=== PATIENT | male | born 1950 | race American Indian/Alaskan Native ===

== ENCOUNTER 2020-02-08 18:17 | Inpatient (IN) | payer OTHER ==
[2020-02-08] MEDS ORDERED: SODIUM CHLORIDE 0.9% 1000 ML 1,000 ML IV ONE (18:25)
[2020-02-08] MEDS ORDERED: PRAVASTATIN 40 MG TAB PO ONE (18:29)
[2020-02-08] MEDS ORDERED: MORPHINE 4 MG/1 ML INJ IV ONE (18:29)
[2020-02-08] MEDS ORDERED: HEPARIN 10,000 UNITS/10 ML VIAL IV ONE (18:30)
[2020-02-08] MEDS ORDERED: METOPROLOL TARTRATE 50 MG TAB PO ONE (18:31)
--- NOTE | 2020-02-08 18:31 | Emergency Department Report ---
ED Chest Pain HPI - General Chief Complaint: Chest Pain Stated Complaint: CHEST PAIN PUI?: No Time Seen by Provider: 02/08/20 18:28 Source: patient, EMS ( EMS documentation not available at time of chart dictation ), RN notes reviewed Mode of arrival: Stretcher Limitations: No Limitations - History of Present Illness Initial Comments: The patient was evaluated in the emergency department for symptoms described in the history of present illness. He/she was evaluated in the context of the global COVID-19 pandemic, which necessitated consideration that the patient might be at risk for infection with the virus that causes COVID-19. Institutional protocols and algorithms that pertain to the evaluation of patients at risk for COVID-19 are in a state of rapid change based on information released by regulatory bodies including the CDC and federal and state organizations. These policies and algorithms were followed during the patient's care in the emergency department. Please note that these policies, procedures and recommendations changed on a rapid basis. The patient is a 69-year-old gentleman. He is not known to myself previously. He typically follows with the [facility]. He has a history of obesity, tobacco use, high cholesterol, question hypertension and diabetes. He is brought to the hospital by emergency medical services. He has a complaint of chest pain. The chest pain is central and left-sided. It is intermittent over the past month. He indicates he does not radiate to the back, arms or neck. He denies vomiting. He is not sure if he is having sweating or diaphoresis. He has intermittent shortness of breath. He was given aspirin and nitroglycerin in the field, which markedly improved his symptoms. He rates his pain as a 4 out of 10 at this time. Previously, it was "a lot higher than 10." A prehospital EKG transmitted by EMS showed diffuse ST depressions, and nonspecific ST abnormality, although not consistent with STEMI. Repeat ER EKG showed resolution of ST depressions, however, biphasic T waves V2 and V3, suspicious for Wellens syndrome. The patient denies cocaine use, and he denies erectile dysfunction medication utilization. His EKGs were transmitted to our interventional STEMI midwife and birth center owner, Dr. Negin Ireland, who advised that based off of the patient's improvement in symptoms, and repeat EKG, he did not meet criteria for emergent activation of the Set Rider. Medical management was recommended, including beta-harry, statins, and heparin drip. Admission to the CCU was recommended. This plan of care is discussed with the patient, who verbalized understanding, and who is amenable to this plan of care. The patient denies DVT and pulmonary embolism risk factors. MD Complaint: chest pain -: Gradual, week(s) Pain Location: left chest Severity: mild Severity scale (0 -10): 0 Quality: aching Consistency: intermittent Improves With: nitroglycerin, medication-other Worsens With: nothing Treatments Prior to Arrival: aspirin, nitroglycerin Aspirin use within the Past 7 Days: (1) Yes - Related Data Previous Rx's Medication Instructions Recorded Last Taken Type Aspirin EC [Ecotrin] 81 mg PO QDAY #100 tablet. 02/09/20 Unknown Rx Glimepiride [Amaryl] 1 mg PO QAM #90 tablet 02/09/20 Unknown Rx Losartan [Cozaar] 50 mg PO QDAY #30 tablet 02/09/20 Unknown Rx metFORMIN XR [Glucophage XR] 500 mg PO QDAY #30 tab 02/09/20 Unknown Rx Allergies Allergy/AdvReac Type Severity Reaction Status Date / Time No Known Allergies Allergy Verified 02/08/20 18:37 Heart Score - HEART Score History: Moderately suspicious EKG: Significant ST-depression Age: > 65 Risk factors: > 3 risk factors or hx of atherosclerotic disease Troponin: < normal limit HEART Score: 7 - Critical Actions Critical Actions: >7 pts:50-65% risk of adverse cardiac event. Early invasive measures ED Review of Systems ROS: Stated complaint: CHEST PAIN Other details as noted in HPI Constitutional: denies: fever Eyes: denies: vision change ENT: denies: hearing loss Respiratory: denies: cough Cardiovascular: chest pain Gastrointestinal: denies: abdominal pain, nausea, vomiting, hematemesis, melena, hematochezia Genitourinary: denies: dysuria Musculoskeletal: denies: myalgia Neurological: denies: weakness Hematological/Lymphatic: denies: easy bleeding ED Past Medical Hx - Past Medical History Previous Medical History?: Yes Hx Diabetes: Yes - Surgical History Past Surgical History?: No - Social History Smoking Status: Current Every Day Smoker Substance Use Type: None - Medications Home Medications: Home Medications Medication Instructions Recorded Confirmed Last Taken Type Aspirin EC [Ecotrin] 81 mg PO QDAY #100 tablet. 02/09/20 Unknown Rx Glimepiride [Amaryl] 1 mg PO QAM #90 tablet 02/09/20 Unknown Rx Losartan [Cozaar] 50 mg PO QDAY #30 tablet 02/09/20 Unknown Rx metFORMIN XR [Glucophage XR] 500 mg PO QDAY #30 tab 02/09/20 Unknown Rx ED Physical Exam - General Limitations: No Limitations General appearance: alert, in no apparent distress - Head Head exam: Present: atraumatic, normocephalic - Eye Eye exam: Present: normal appearance, EOMI. Absent: nystagmus - ENT ENT exam: Present: normal exam, normal orophraynx, mucous membranes moist, normal external ear exam, other (Patient is edentulous) - Neck Neck exam: Present: normal inspection, full ROM. Absent: tenderness, meningismus - Respiratory Respiratory exam: Present: normal lung sounds bilaterally. Absent: respiratory distress, wheezes, rales, rhonchi, stridor - Cardiovascular Cardiovascular Exam: Present: regular rate, normal rhythm, normal heart sounds. Absent: bradycardia, tachycardia, irregular rhythm, systolic murmur, diastolic murmur, rubs, gallop - GI/Abdominal GI/Abdominal exam: Present: soft. Absent: distended, tenderness, guarding, rebound, rigid, pulsatile mass - Rectal Rectal exam: Present: deferred - Extremities Exam Extremities exam: Present: normal inspection, full ROM, other (2+ pulses noted in the bilateral upper and lower extremities. There is no palpable cord. negative Homans sign. Muscular compartments are soft. The pelvis is stable.). Absent: pedal edema, calf tenderness - Back Exam Back exam: Present: normal inspection, full ROM. Absent: tenderness, CVA tenderness (R), CVA tenderness (L), paraspinal tenderness, vertebral tenderness - Neurological Exam Neurological exam: Present: alert, other (No facial droop. Tongue midline. Extraocular movements intact bilaterally. Facial sensation intact to light touch in V1, V2, V3 distribution bilaterally. 5 and a 5 strength in 4 extremities. Sensation intact to light touch in 4 extremities.). Absent: motor sensory deficit - Psychiatric Psychiatric exam: Present: normal affect, normal mood - Skin Skin exam: Present: warm, dry, intact, normal color. Absent: rash ED Course Vital Signs 02/08/20 02/08/20 02/08/20 18:22 18:24 18:31 Temperature 97.9 F Pulse Rate 76 78 Respiratory 16 13 Rate Blood Pressure 181/79 Blood Pressure 181/70 [Left] O2 Sat by Pulse 100 100 100 Oximetry 02/08/20 02/08/20 02/08/20 18:45 18:50 19:00 Temperature Pulse Rate 72 71 72 Respiratory 11 L 18 Rate Blood Pressure 181/79 158/62 162/65 Blood Pressure [Left] O2 Sat by Pulse 100 99 Oximetry 02/08/20 02/08/20 02/08/20 19:15 19:35 19:42 Temperature Pulse Rate 71 77 100 H Respiratory 20 Rate Blood Pressure 159/70 136/65 178/124 Blood Pressure [Left] O2 Sat by Pulse 98 Oximetry 02/08/20 02/08/20 02/08/20 19:45 20:00 20:15 Temperature Pulse Rate 82 68 62 Respiratory 14 19 15 Rate Blood Pressure 199/87 150/68 154/63 Blood Pressure [Left] O2 Sat by Pulse 97 97 96 Oximetry 02/08/20 02/08/20 02/08/20 20:30 20:45 21:00 Temperature Pulse Rate 63 79 62 Respiratory 17 12 17 Rate Blood Pressure 141/59 152/70 155/64 Blood Pressure [Left] O2 Sat by Pulse 99 99 99 Oximetry 02/08/20 02/08/20 02/08/20 21:15 21:31 22:01 Temperature Pulse Rate 71 81 76 Respiratory 18 18 16 Rate Blood Pressure 145/64 160/63 143/76 Blood Pressure [Left] O2 Sat by Pulse 96 97 Oximetry 02/08/20 02/08/20 02/08/20 22:15 22:31 22:46 Temperature Pulse Rate 73 71 85 Respiratory 17 13 19 Rate Blood Pressure 157/64 136/64 159/60 Blood Pressure [Left] O2 Sat by Pulse 100 100 Oximetry 02/08/20 02/08/20 02/08/20 23:00 23:15 23:30 Temperature Pulse Rate 73 78 65 Respiratory 15 22 17 Rate Blood Pressure 138/73 151/80 160/71 Blood Pressure [Left] O2 Sat by Pulse 100 99 99 Oximetry 02/08/20 02/09/20 02/09/20 23:45 00:00 00:13 Temperature Pulse Rate 68 81 66 Respiratory 15 18 16 Rate Blood Pressure 148/66 129/74 118/68 Blood Pressure [Left] O2 Sat by Pulse 98 96 98 Oximetry 02/09/20 02/09/20 02/09/20 00:15 00:31 00:41 Temperature Pulse Rate 66 82 95 H Respiratory 16 15 Rate Blood Pressure 122/60 139/62 184/88 Blood Pressure [Left] O2 Sat by Pulse 96 98 Oximetry 02/09/20 02/09/20 02/09/20 00:45 01:00 01:15 Temperature Pulse Rate 73 62 62 Respiratory 17 14 15 Rate Blood Pressure 189/87 124/62 120/59 Blood Pressure [Left] O2 Sat by Pulse 98 96 98 Oximetry 02/09/20 02/09/20 02/09/20 01:31 01:45 02:01 Temperature Pulse Rate 67 61 59 L Respiratory 20 15 17 Rate Blood Pressure 111/66 133/56 129/48 Blood Pressure [Left] O2 Sat by Pulse 97 100 97 Oximetry 02/09/20 02/09/20 02/09/20 02:15 02:30 02:45 Temperature Pulse Rate 57 L 60 59 L Respiratory 15 16 15 Rate Blood Pressure 118/45 107/50 130/55 Blood Pressure [Left] O2 Sat by Pulse 96 95 96 Oximetry 02/09/20 02/09/20 02/09/20 03:01 03:03 03:15 Temperature Pulse Rate 88 77 84 Respiratory 18 13 Rate Blood Pressure 166/79 186/87 116/58 Blood Pressure [Left] O2 Sat by Pulse 100 97 Oximetry - Reevaluation(s) Reevaluation #1: 02/08/20 18:38 Dr Kristy Merino to admit Reevaluation #2: 02/08/20 18:54 Patient is reassessed. He continues to remain pain-free. X-ray of the chest to my interpretation shows no acute pathology Reevaluation #3: 02/08/20 19:23 Dr Kristy Merino to admit NEIL score - Neil Score Age > 65: (1) Yes Aspirin use within the Past 7 Days: (1) Yes 3 or more CAD Risk Factors: (1) Yes 2 or more Angina events in past 24 hrs: (1) Yes Known CAD with more than 50% Stenosis: (0) No Elevated Cardiac Markers: (0) No ST Deviation Greater than 0.5mm: (1) Yes NEIL Score: 5 ED Medical Decision Making - Lab Data Result diagrams: 02/09/20 06:50 02/09/20 06:50 Vital Signs 02/08/20 18:24 Temperature 97.9 F Pulse Rate 76 Respiratory 16 Rate Blood Pressure 181/70 [Left] O2 Sat by Pulse 100 Oximetry - EKG Data -: EKG Interpreted by Me EKG shows normal: sinus rhythm Rate: normal - EKG Data When compared to previous EKG there are: previous EKG unavailable 02/08/20 18:36 EKG in the emergency room shows a sinus rhythm, 71 bpm, normal axis, QTC within normal limits, left ventricular hypertrophy, biphasic T waves, suspicious for Wellens syndrome. The EKG is abnormal, it is different from the prehospital EKG. The EKG is not a STEMI. The EKG is transmitted to our case loader operator, Dr. Negin Ireland, who also advises and agrees that this EKG is not consistent with a STEMI - Radiology Data Radiology results: pending, image reviewed interpreted by me: 1 view x-ray of the chest shows clear lungs, no infiltrate, no pneumothorax, unremarkable mediastinum, unremarkable osseous anatomy. - Medical Decision Making Differential diagnosis, include but not limited to: Stable angina, unstable angina, Wellens syndrome Assessment and plan: 69-year-old gentleman who is essentially pain-free at this time, with markedly abnormal EKG, moderate to high risk for major adverse cardiac event as per heart score, does not meet criteria for emergent activation of the Set Rider, but will likely have a urgent cardiac catheterization. no thank you cardiology, Dr. Ireland will follow in consultation. Patient will be admitted to our medical service/cardiac care unit. Patient is in agreement with this plan of care. Patient is not currently tachycardic, tachypneic or hypoxic, he denies DVT and pulmonary embolism risk factors and he is low risk by Wells criteria. He has equal pulses in the upper and lower extremities, blood pressure is improved, clinically this is very unlikely to be an aortic dissection. Critical Care Time: Yes Critical care time in (mins) excluding proc time.: 35 Critical care attestation.: If time is entered above; I have spent that time in minutes in the direct care of this critically ill patient, excluding procedure time. ED Disposition Clinical Impression: Acute coronary syndrome Disposition: OP ADMIT IP TO THIS HOSP Is pt being admited?: Yes Does the pt Need Aspirin: No (given aspirin by ems) Condition: Serious
[2020-02-08] MEDS: HEPARIN/ 0.45% NACL DRIP 25,000 UNIT/500 ML BAG IV SCH (18:52)
[2020-02-08 19:00] LABS: Basophils # (Auto) 0.1 K/mm3 (0.0-0.1); Basophils % (Auto) 0.9 % (0.0-1.8); Eosinophils # (Auto) 0.1 K/mm3 (0.0-0.4); Eosinophils % (Auto) 1.3 % (0.0-4.3); Hematocrit 39.2 % (35.5-45.6); Hemoglobin 12.8 gm/dl (11.8-15.2); Lymphocytes # (Auto) 0.8 K/mm3 (1.2-5.4); Lymphocytes % (Auto) 8.3 % (13.4-35.0); Mean Corpuscular HGB Conc 33 % (32-34); Mean Corpuscular Volume 86 fl (84-94); Monocytes # (Auto) 0.7 K/mm3 (0.0-0.8); Monocytes % (Auto) 6.4 % (0.0-7.3); Platelet Count 192 K/mm3 (140-440); Red Blood Count 4.56 M/mm3 (3.65-5.03); Red Cell Distribution Width 14.7 % (13.2-15.2)
[2020-02-08 19:11] LABS: Partial Thromboplastin Time 26.4 Sec. (24.2-36.6)
[2020-02-08 19:23] LABS: BUN/Creatinine Ratio 10; Blood Urea Nitrogen 8 mg/dL (9-20); Calcium 9.1 mg/dL (8.4-10.2); Hemolysis Index 67
[2020-02-08] MEDS: NITROGLYCERIN 0.4 MG TAB SUBL SL PRN (19:42)
--- NOTE | 2020-02-08 20:11 | XRay Report ---
CHEST 1 VIEW INDICATION / CLINICAL INFORMATION: chest pain. COMPARISON: None available. FINDINGS: SUPPORT DEVICES: None. HEART / MEDIASTINUM: No significant abnormality. LUNGS / PLEURA: No significant pulmonary or pleural abnormality. No pneumothorax. ADDITIONAL FINDINGS: No significant additional findings. IMPRESSION: 1. No acute findings. Signer Name: Laurent Garcia MD Signed: 02/08/2020 8:06 PM Workstation Name: [id number]
[2020-02-08] MEDS ORDERED: ACETAMINOPHEN 325 MG TAB PO PRN (21:42)
[2020-02-08] MEDS ORDERED: HYDROmorphone 1 MG/1 ML INJ IV PRN (21:42)
[2020-02-08] MEDS ORDERED: MORPHINE 2 MG/1 ML INJ IV PRN (21:42)
[2020-02-08] MEDS ORDERED: ONDANSETRON 4 MG/2 ML INJ IV PRN (21:42)
--- NOTE | 2020-02-08 21:44 | History and Physical Report ---
History of Present Illness Date of examination: 02/08/20 Date of admission: 02/08/20 18:39 Chief complaint: Chest pain for 1 day duration History of present illness: 69-year-old male with history of type 2 diabetes comes in for chest pain which is retrosternal and left-sided. Intermittent in nature for the past 1 month but more so for the last 1 day. No sweating or diaphoresis. Intermittent in nature. No exacerbating or relieving factors. Patient denies any cocaine drug use. Prehospital EKG showed ST segment depressions which have resolved while in the emergency room. There was a suspicion of Wellens syndrome. Patient was started on IV heparin drip. After consulting with cardiology. - HEART Score History: Moderately suspicious EKG: Significant ST-depression Age: > 65 Risk factors: > 3 risk factors or hx of atherosclerotic disease - Past Medical History Previous Medical History?: Yes Hx Diabetes: Yes - Surgical History Past Surgical History?: No - Social History Smoking Status: Current Every Day Smoker Substance Use Type: None Family history Htn Review of Systems ROS: Stated complaint: CHEST PAIN Other details as noted in HPI Constitutional: denies: fever Eyes: denies: vision change ENT: denies: hearing loss Respiratory: denies: cough Cardiovascular: chest pain Gastrointestinal: denies: abdominal pain, nausea, vomiting, hematemesis, melena, hematochezia Genitourinary: denies: dysuria Musculoskeletal: denies: myalgia Neurological: denies: weakness Hematological/Lymphatic: denies: easy bleeding Medications and Allergies Allergies Allergy/AdvReac Type Severity Reaction Status Date / Time No Known Allergies Allergy Verified 02/08/20 18:37 Home Medications Medication Instructions Recorded Confirmed Last Taken Type Unobtainable 02/09/20 02/09/20 Unknown History Active Meds: Active Medications Heparin Sodium/Sodium Chloride (Heparin/ 0.45% Nacl-25,000 Unit/500 Ml) 25,000 unit in 500 mls @ 20 mls/hr IV TITRATE MARCIA; Protocol Last Admin: 02/08/20 18:52 Dose: 1,000 units/hr, 20 mls/hr Documented by: Nitroglycerin (Nitrostat) 0.4 mg SL .Q5MIN PRN PRN Reason: Chest Pain Last Admin: 02/08/20 19:42 Dose: 0.4 mg Documented by: Exam - Constitutional Vitals: Temp Pulse Resp BP Pulse Ox 97.9 F 82 14 199/87 97 02/08/20 18:24 02/08/20 19:45 02/08/20 19:45 02/08/20 19:45 02/08/20 19:45 General appearance: Present: no acute distress, well-nourished - EENT Eyes: Present: PERRL ENT: hearing intact, clear oral mucosa - Neck Neck: Present: supple, normal ROM - Respiratory Respiratory effort: normal Respiratory: bilateral: CTA - Cardiovascular Heart rate: 78 Rhythm: regular Heart Sounds: Present: S1 & S2. Absent: rub, click - Extremities Extremities: pulses symmetrical, No edema Peripheral Pulses: within normal limits - Abdominal General gastrointestinal: Present: soft, non-tender, non-distended, normal bowel sounds Male genitourinary: Present: normal - Integumentary Integumentary: Present: clear, warm, dry - Musculoskeletal Musculoskeletal: gait normal, strength equal bilaterally - Psychiatric Psychiatric: appropriate mood/affect, intact judgment & insight - Neurologic Neurologic: CNII-XII intact, moves all extremities HEART Score - HEART Score EKG: Significant ST-depression Age: > 65 Risk factors: > 3 risk factors or hx of atherosclerotic disease Troponin: Troponin T < 0.010 ng/mL (0.00-0.029) 02/08/20 20:48 Results - Labs CBC & Chem 7: 02/08/20 18:40 02/08/20 18:40 Labs: Laboratory Last Values WBC 10.2 K/mm3 (4.5-11.0) 02/08/20 18:40 RBC 4.56 M/mm3 (3.65-5.03) 02/08/20 18:40 Hgb 12.8 gm/dl (11.8-15.2) 02/08/20 18:40 Hct 39.2 % (35.5-45.6) 02/08/20 18:40 MCV 86 fl (84-94) 02/08/20 18:40 MCH 28 pg (28-32) 02/08/20 18:40 MCHC 33 % (32-34) 02/08/20 18:40 RDW 14.7 % (13.2-15.2) 02/08/20 18:40 Plt Count 192 K/mm3 (140-440) 02/08/20 18:40 Lymph % (Auto) 8.3 % (13.4-35.0) L 02/08/20 18:40 [place] % (Auto) 6.4 % (0.0-7.3) 02/08/20 18:40 Eos % (Auto) 1.3 % (0.0-4.3) 02/08/20 18:40 Baso % (Auto) 0.9 % (0.0-1.8) 02/08/20 18:40 Lymph # (Auto) 0.8 K/mm3 (1.2-5.4) L 02/08/20 18:40 [place] # (Auto) 0.7 K/mm3 (0.0-0.8) 02/08/20 18:40 Eos # (Auto) 0.1 K/mm3 (0.0-0.4) 02/08/20 18:40 Baso # (Auto) 0.1 K/mm3 (0.0-0.1) 02/08/20 18:40 Seg Neutrophils % 83.1 % (40.0-70.0) H 02/08/20 18:40 Seg Neutrophils # 8.4 K/mm3 (1.8-7.7) H 02/08/20 18:40 PT 13.3 Sec. (12.2-14.9) 02/08/20 18:40 INR 1.00 (0.87-1.13) 02/08/20 18:40 APTT 26.4 Sec. (24.2-36.6) 02/08/20 18:40 Sodium 136 mmol/L (137-145) L 02/08/20 18:40 Potassium 4.0 mmol/L (3.6-5.0) 02/08/20 18:40 Chloride 97.8 mmol/L (98-107) L 02/08/20 18:40 Carbon Dioxide 23 mmol/L (22-30) 02/08/20 18:40 Anion Gap 19 mmol/L 02/08/20 18:40 BUN 8 mg/dL (9-20) L 02/08/20 18:40 Creatinine 0.8 mg/dL (0.8-1.3) 02/08/20 18:40 Estimated GFR > 60 ml/min 02/08/20 18:40 BUN/Creatinine Ratio 10 % 02/08/20 18:40 Glucose 266 mg/dL (75-100) H 02/08/20 18:40 Calcium 9.1 mg/dL (8.4-10.2) 02/08/20 18:40 Magnesium 2.10 mg/dL (1.7-2.3) 02/08/20 18:40 Total Creatine Kinase 177 units/L (55-170) H 02/08/20 18:40 Troponin T < 0.010 ng/mL (0.00-0.029) 02/08/20 20:48 Short CBC 02/08/20 Range/Units 18:40 WBC 10.2 (4.5-11.0) K/mm3 Hgb 12.8 (11.8-15.2) gm/dl Hct 39.2 (35.5-45.6) % Plt Count 192 (140-440) K/mm3 BMP 02/08/20 18:40 Sodium 136 L Potassium 4.0 Chloride 97.8 L Carbon Dioxide 23 BUN 8 L Creatinine 0.8 Glucose 266 H Calcium 9.1 Cardiac Enzymes 02/08/20 02/08/20 02/08/20 Range/Units 18:40 18:40 20:48 Total Creatine Kinase 177 H (55-170) units/L Troponin T < 0.010 < 0.010 (0.00-0.029) ng/mL 02/09/20 Range/Units 01:45 Total Creatine Kinase (55-170) units/L Troponin T < 0.010 (0.00-0.029) ng/mL - Imaging and Cardiology EKG: report reviewed Chest x-ray: report reviewed Fan/IV: IV Catheter Type [Left INT / Saline Lock Antecubital] IV Catheter Type [Right Hand] INT / Saline Lock Assessment and Plan Advance Directives: Yes (Full code) Plan of care discussed with patient/family: Yes - Patient Problems (1) Acute coronary syndrome Current Visit: Yes Status: Acute Plan to address problem: [facility] Cardiology consult requested Serial troponins (2) T2DM (type 2 diabetes mellitus) Current Visit: Yes Status: Chronic Qualifiers: Diabetes mellitus termination clerk insulin use: unspecified penitentiary insulin use status Plan to address problem: Check hemoglobin A1c and continue coverage (3) Hypertension Current Visit: Yes Status: Chronic Qualifiers: Hypertension type: essential hypertension Qualified Code(s): I10 - Essential (primary) hypertension Plan to address problem: Continue antihypertensive (4) DVT prophylaxis Current Visit: Yes Status: Acute Plan to address problem: On heparin and GI prophylaxis
[2020-02-08] MEDS ORDERED: SODIUM CHLORIDE 0.45% 1000 ML 1,000 ML IV SCH (22:00)
[2020-02-09] MEDS: NITROGLYCERIN 0.4 MG TAB SUBL SL PRN ×2 (00:41→03:03)
[2020-02-09] MEDS ORDERED: SODIUM CHLORIDE 0.45% 1000 ML 1,000 ML IV ONE (00:49)
[2020-02-09 07:48] LABS: Basophils # (Auto) 0.1 K/mm3 (0.0-0.1); Basophils % (Auto) 0.6 % (0.0-1.8); Eosinophils # (Auto) 0.2 K/mm3 (0.0-0.4); Eosinophils % (Auto) 2.4 % (0.0-4.3); Hemoglobin 13.4 gm/dl (11.8-15.2); Lymphocytes # (Auto) 1.1 K/mm3 (1.2-5.4); Lymphocytes % (Auto) 11.9 % (13.4-35.0); Mean Corpuscular HGB Conc 33 % (32-34); Mean Corpuscular Volume 86 fl (84-94); Monocytes # (Auto) 0.6 K/mm3 (0.0-0.8); Monocytes % (Auto) 6.9 % (0.0-7.3); Platelet Count 210 K/mm3 (140-440); Red Blood Count 4.75 M/mm3 (3.65-5.03); Red Cell Distribution Width 14.8 % (13.2-15.2)
[2020-02-09 08:09] LABS: Alanine Aminotransferase 10 units/L (7-56); Albumin 3.9 g/dL (3.9-5); Blood Urea Nitrogen 7 mg/dL (9-20); Calcium 9.4 mg/dL (8.4-10.2); Hemolysis Index 1
[2020-02-09 08:25] LABS: BUN/Creatinine Ratio 12
[2020-02-09] MEDS: HEPARIN/ 0.45% NACL DRIP 25,000 UNIT/500 ML BAG IV SCH (12:10)
--- NOTE | 2020-02-09 12:38 | Consultation ---
History of Present Illness Consult date: 02/09/20 Consult reason: chest pain, other (abnormal ECG) History of present illness: This is a 69-year old male with a history of chronic hypertension, diabetes, hyperlipidemia and tobacco abuse. Patient presents to this hospital and admitted with chest pain. Reports he developed chest pain while shopping yesterday associated with shortness of breath, nausea and vomiting. Patient reports intermittent chest pain for several weeks, relieved with antacids. Denies prior cardiac history and he had no recent cardiac workup. Cycled troponin T measurements were normal. Chest x-ray is negative. An ECG done in the emergency department shows sinus rhythm with anterolateral ST abnormalities. His EKGs were transmitted to our interventional STEMI wet machine operator, but did not meet criteria for emergent activation of the recyclable materials distributor. A cardiac consultation has been requested for further evaluation and recommendations. Medications and Allergies Allergies Allergy/AdvReac Type Severity Reaction Status Date / Time No Known Allergies Allergy Verified 02/08/20 18:37 Home Medications Medication Instructions Recorded Confirmed Last Taken Type Unobtainable 02/09/20 02/09/20 Unknown History Active Meds: Active Medications Acetaminophen (Tylenol) 650 mg PO Q4H PRN PRN Reason: Pain MILD(1-3)/Fever >100.5/AGUIRRE Hydromorphone HCl (Dilaudid) 0.5 mg IV Q3H PRN PRN Reason: Pain , Severe (7-10) Last Admin: 02/09/20 06:38 Dose: 0.5 mg Documented by: Heparin Sodium/Sodium Chloride (Heparin/ 0.45% Nacl-25,000 Unit/500 Ml) 25,000 unit in 500 mls @ 20 mls/hr IV TITRATE MARCIA; Protocol Last Admin: 02/09/20 12:10 Dose: 850 units/hr, 17 mls/hr Documented by: Sodium Chloride (Nacl 0.45% 1000 Ml) 1,000 mls @ 75 mls/hr IV DIRECT MARCIA Last Admin: 02/09/20 00:54 Dose: 75 mls/hr Documented by: Morphine Sulfate (Morphine) 2 mg IV Q4H PRN PRN Reason: Pain, Moderate (4-6) Last Admin: 02/09/20 04:50 Dose: 2 mg Documented by: Nitroglycerin (Nitrostat) 0.4 mg SL .Q5MIN PRN PRN Reason: Chest Pain Last Admin: 02/09/20 03:03 Dose: 0.4 mg Documented by: Ondansetron HCl (Zofran) 4 mg IV Q8H PRN PRN Reason: Nausea And Vomiting Sodium Chloride (Sodium Chloride Flush Syringe 10 Ml) 10 ml IV BID MARCIA Last Admin: 02/09/20 09:25 Dose: 10 ml Documented by: Sodium Chloride (Sodium Chloride Flush Syringe 10 Ml) 10 ml IV PRN PRN PRN Reason: LINE FLUSH Physical Examination Vital Signs Pulse Ox 100 02/08/20 18:22 General appearance: no acute distress HEENT: Positive: PERRL Neck: Positive: trachea midline Cardiac: Positive: Reg Rate and Rhythm Lungs: Positive: Decreased Breath Sounds Neuro: Positive: Grossly Intact Results 02/09/20 06:50 02/09/20 06:50 Cardiac Enzymes 02/09/20 Range/Units 06:50 AST 17 (5-40) units/L Coagulation 02/08/20 Range/Units 18:40 PT 13.3 (12.2-14.9) Sec. INR 1.00 (0.87-1.13) APTT 26.4 (24.2-36.6) Sec. CBC 02/08/20 02/09/20 Range/Units 18:40 06:50 WBC 10.2 9.2 (4.5-11.0) K/mm3 RBC 4.56 4.75 (3.65-5.03) M/mm3 Hgb 12.8 13.4 (11.8-15.2) gm/dl Hct 39.2 41.0 (35.5-45.6) % Plt Count 192 210 (140-440) K/mm3 Lymph # (Auto) 0.8 L 1.1 L (1.2-5.4) K/mm3 [place] # (Auto) 0.7 0.6 (0.0-0.8) K/mm3 Eos # (Auto) 0.1 0.2 (0.0-0.4) K/mm3 Baso # (Auto) 0.1 0.1 (0.0-0.1) K/mm3 Comprehensive Metabolic Panel 02/08/20 02/09/20 Range/Units 18:40 06:50 Sodium 136 L 141 (137-145) mmol/L Potassium 4.0 3.8 (3.6-5.0) mmol/L Chloride 97.8 L 101.8 (98-107) mmol/L Carbon Dioxide 23 31 H D (22-30) mmol/L BUN 8 L 7 L (9-20) mg/dL Creatinine 0.8 0.6 L (0.8-1.3) mg/dL Glucose 266 H 199 H (75-100) mg/dL Calcium 9.1 9.4 (8.4-10.2) mg/dL AST 17 (5-40) units/L ALT 10 (7-56) units/L Alkaline Phosphatase 73 (35-129) units/L Total Protein 7.2 (6.3-8.2) g/dL Albumin 3.9 (3.9-5) g/dL Assessment and Plan Chest pain Abnormal ECG Hypertension Diabetes HLP Echocardiogram for LVEF assessment. Ischemic evaluation with a stress thallium test versus a cardiac cath before discharge.
--- NOTE | 2020-02-09 17:42 | Discharge Summary ---
Providers - Providers Date of Admission: 02/08/20 18:39 Date of discharge: 02/09/20 Attending physician: ROBBIE ACUNA 02/08/20 18:29 Consult to Physician [CONS] Urgent Comment: Consulting Provider: PHILIPP ERICKSON Physician Instructions: Reason For Exam: acs Primary care physician: [facility] Hospitalization Condition: Serious Pertinent studies: Echocardiogram-near normal ejection fraction Lexiscan to be done as outpatient Hospital course: Patient was admitted to for acute chest pain yesterday. Patient states is symptomatically better. Patient wants to go home at any cost. Patient wants to follow-up with cardiology as outpatient. Echocardiogram done but the results are not available. Lexiscan to be done as an outpatient. - Patient Problems (1) Acute coronary syndrome Current Visit: Yes Status: Acute Plan to address problem: IV heparin drip for now Lexiscan/LHC in the morning Cardiology consult requested Serial troponins (2) T2DM (type 2 diabetes mellitus) Current Visit: Yes Status: Chronic Qualifiers: Diabetes mellitus [facility] insulin use: unspecified [facility] insulin use status Plan to address problem: Continue oral hypoglycemics. (3) Hypertension Current Visit: Yes Status: Chronic Qualifiers: Hypertension type: essential hypertension Qualified Code(s): I10 - Essential (primary) hypertension Plan to address problem: Continue antihypertensive (4) DVT prophylaxis Current Visit: Yes Status: Acute Plan to address problem: On heparin and GI prophylaxis Disposition: DC-01 TO HOME OR SELFCARE - Discharge Diagnoses (1) Acute coronary syndrome Status: Acute (2) T2DM (type 2 diabetes mellitus) Status: Chronic Qualifiers: Diabetes mellitus intermediate accountant insulin use: unspecified intermediate [facility] insulin use status (3) Hypertension Status: Chronic Qualifiers: Hypertension type: essential hypertension Qualified Code(s): I10 - Essential (primary) hypertension (4) DVT prophylaxis Status: Acute Core Measure Documentation - Palliative Care Palliative Care/ Comfort Measures: Not Applicable - Core Measures Any of the following diagnoses?: none Exam - Constitutional Vitals: Temp Pulse Resp BP Pulse Ox 97.9 F 72 19 116/58 99 02/08/20 18:24 02/09/20 16:00 02/09/20 10:00 02/09/20 03:15 02/09/20 10:00 General appearance: Present: no acute distress, well-nourished - EENT Eyes: Present: PERRL ENT: hearing intact, clear oral mucosa - Neck Neck: Present: supple, normal ROM - Respiratory Respiratory effort: normal Respiratory: bilateral: CTA - Cardiovascular Heart rate: 76 Rhythm: regular Heart Sounds: Present: S1 & S2. Absent: rub, click - Extremities Extremities: no ischemia, pulses symmetrical, No edema Peripheral Pulses: within normal limits - Abdominal General gastrointestinal: Present: soft, non-tender, non-distended, normal bowel sounds Male genitourinary: Present: normal - Rectal Rectal Exam: deferred - Integumentary Integumentary: Present: clear, warm, dry - Musculoskeletal Musculoskeletal: gait normal, strength equal bilaterally - Psychiatric Psychiatric: appropriate mood/affect, intact judgment & insight - Neurologic Neurologic: CNII-XII intact, moves all extremities - Allied Health Allied health notes reviewed: nursing, case management Plan Activity: no restrictions Diet: low salt Follow up with: [facility] [Primary Care Provider] - 7 Days ALEM JUAREZ MD [Staff Physician] - 7 Days
[2020-02-09 17:54] VITALS: BP 140/58
== END 2020-02-09 18:45 | disposition home or self-care (01) | DRG 311 ==
LOC: ED 18:17 → CC1 18:39 → 4A 02-09 01:17
PROVIDERS: ADMIT Internal Medicine; ATTEND Internal Medicine
DX: I24.9 Acute ischemic heart disease, unspecified (principal); E11.9 Type 2 diabetes mellitus without complications; I10 Essential (primary) hypertension; E66.9 Obesity, unspecified; F17.210 Nicotine dependence, cigarettes, uncomplicated; E78.5 Hyperlipidemia, unspecified; Z68.26 Body mass index [BMI] 26.0-26.9, adult; Z82.49 Family history of ischemic heart disease and other diseases of the circulatory system
CPT/HCPCS: 36415; 71045; 80048; 80053; 82550; 82962; 83036; 83735; 84484; 85025; 85520; 85610; 85730; 93005; 93306; 96374; 96375; G0378; A9270-GY; J1170; J1644; J2270; J7030

== ENCOUNTER 2020-03-09 10:00 | Day surgery (SDC) | payer MEDICARE, OTHER ==
[~2020-03-09 10:00] MED LIST: ASPIRIN EC 325 MG TAB PO ONE; SODIUM CHLORIDE 0.9% 500 ML 500 ML ONE
[2020-03-09] MEDS: fentaNYL 100 MCG/2 ML INJ ONE ×4 (10:10→12:05)
[2020-03-09] MEDS: MIDAZOLAM 2 MG/2 ML INJ ONE ×3 (10:10→12:05)
[2020-03-09] MEDS ORDERED: HEPARIN/NS 5000 UNIT/500ML 1,000 ML IR ONE (11:10)
[2020-03-09] MEDS ORDERED: HEPARIN 10,000 UNITS/10 ML VIAL ONE (11:10)
[2020-03-09] MEDS ORDERED: LIDOCAINE (2%) 20 MG/1 ML VIAL 20 ML MDV INFILTRATI ONE (11:11)
[2020-03-09] MEDS ORDERED: VERAPAMIL 5 MG/2 ML INJ ONE (11:11)
--- NOTE | 2020-03-09 16:42 | Cardiac Catherization Report ---
PROCEDURE: Cardiac catheterization. INDICATION FOR PROCEDURE: The patient is a 69-year-old -[place] gentleman with history of chronic smoking and diabetes mellitus. He is having symptoms suggestive of angina and nuclear imaging revealed evidence of anterior ischemia, hence scheduled for cardiac catheterization for definitive diagnosis and treatment. The patient is aware of the procedure, potential complications and alternatives of therapy available. DESCRIPTION OF PROCEDURE: The patient was brought to the catheterization laboratory in a fasting condition. The patient evaluated for moderate sedation and was felt to be appropriate candidate for moderate sedation. The patient was given IV Versed and fentanyl. Subsequently, local anesthesia was given in the right wrist area and right radial artery puncture was made using 21-gauge arterial puncture needle. Subsequently, 5-[place] slender sheath was inserted. A 6-[place] multipurpose catheter was used to obtain the angiograms of the left coronary artery in multiple views followed by angiograms of the right coronary artery and left ventriculogram done in PLAZA projection using hand injection. At the end of the procedure, catheter and sheaths were removed. Good hemostasis was achieved with radial band. It is to be noted the patient was evaluated for moderate sedation and was felt to be appropriate candidate and received IV Versed and fentanyl at 11:53 a.m. Subsequently, was continuously monitored with pulse oximetry, EKG monitoring and hemodynamic monitoring and at the end of the procedure, the patient was found to be communicating normally, breathing normally with no focal deficits. Vital signs have been stable. The patient's moderate sedation monitoring ended at 12:10 noon. The patient was transferred to the room in stable condition. Following findings were noted: HEMODYNAMICS: 1. Opening aortic pressure 162/52. Left ventricular pressure 158/ . No gradient across the aortic valve. Estimated ejection fraction 60-65%. 2. Left ventriculogram done in PLAZA projection showed normal sized left ventricle with normal contractility. End-diastolic and systolic volumes are normal. Mitral regurgitation was not evaluated because of limited amount of dye injected. 3. Left coronary artery arises normally from left coronary cusp. Distal left main shows smooth 20-30% lesion. LAD shows severe ostial lesion more than 95%. Rest of the LAD showed only mild irregularities. Circumflex artery itself shows 20-30% irregularity in the mid part. Rest of the circumflex artery and its branches show only mild irregularities. Right coronary artery similarly dominant vessel, shows mild smooth irregularities, 30% of the proximal part. Collaterals none. FINAL IMPRESSION: Normal sized left ventricle with mild left main disease and severe ostial LAD disease with no significant disease in the LAD elsewhere. Circumflex artery and RCA showed mild irregularities. Considering the above, the patient would benefit from revascularization, preferably by surgical revascularization considering the location of the severity of the lesion. The patient was explained about the same and is agreeable with the plan. The patient will be transferred to [facility] when bed available after discussing with cardiothoracic surgeon. The patient tolerated the procedure well. No untoward complications were noted. The patient was transferred to the recovery area in stable condition. JOB# [id number] SEE/TIESHA
[2020-03-09] MEDS ORDERED: traMADol 50 MG TAB ONE (19:19)
[2020-03-10] MEDS: MIDAZOLAM 2 MG/2 ML INJ ONE (10:21)
[2020-03-11 08:32] LABS: BUN/Creatinine Ratio 12; Blood Urea Nitrogen 11 mg/dL (9-20); Calcium 9.6 mg/dL (8.4-10.2); Hemolysis Index 22
== END 2020-03-09 10:01 | disposition home or self-care (01) ==
LOC: CATHLABREC 10:00
PROVIDERS: ATTEND Internal Medicine
DX: R07.89 Other chest pain (principal); R94.39 Abnormal result of other cardiovascular function study; I24.9 Acute ischemic heart disease, unspecified; E11.9 Type 2 diabetes mellitus without complications; E78.00 Pure hypercholesterolemia, unspecified; R94.31 Abnormal electrocardiogram [ECG] [EKG]; F17.210 Nicotine dependence, cigarettes, uncomplicated; Z79.84 Long term (current) use of oral hypoglycemic drugs; Z79.82 Long term (current) use of aspirin; Z79.899 Other long term (current) drug therapy; Z82.49 Family history of ischemic heart disease and other diseases of the circulatory system
CPT/HCPCS: 36415; 80048; 82962; 93005; 93458; C1894; J1644; J2250; J3010; J7040; Q9967